=== PATIENT | male | born 1955 | race Caucasian/White ===

== ENCOUNTER 2020-07-03 08:09 | Day surgery (SDC) | payer MEDICARE, OTHER, SELFPAY ==
[2020-07-03] VITALS (12 sets, daily range): BP systolic 89–161; BP diastolic 54–98; PULSE 51–81; RESP 16–20; TEMP 36.6; O2SAT 91–96; BMI 32.3
--- NOTE | 2020-07-03 | IR_ITS ---
APPROVED REPORT [facility] [employer] Teacher: WOODY Nieto RT (R) PROCEDURES Left heart catheterization Left ventriculogram Selective coronary angiogram INDICATION Abnormal stress test, Angina pectoris Informed consent was obtained prior to the procedure. COMPLICATIONS none Estimated Blood Loss: less than 10 mls TECHNIQUE One percent lidocaine used to anesthetize the right anterior aspect of the wrist. The right radial artery was accessed via the Seldinger technique. A 6 [place] sheath was placed in the right radial artery. 2.5 mg of verapamil, 800 mcg of nitroglycerin, 1mg Lidocaine and 5000 U Heparin were given through the arterial sheath. The trap catheter was also used to perform left heart catheterization, left ventriculogram and selective coronary angiogram. At the end of the procedure the sheath was removed good hemostasis was achieved using Traclet band, patient was transferred to the postop holding area in stable condition. ANGIOGRAPHIC RESULTS The left main artery Normal The left anterior descending artery Is a large caliber vessel with a proximal 20% stenosis at the bifurcation of a large first diagonal artery and LAD. Distal to the diagonal artery the LAD has 30% stenosis followed by an additional concentric 20 to 30% mid vessel stenosis. The very large caliber diagonal artery has an ostial 30% stenosis The circumflex artery Is a nondominant yet still large vessel giving rise to a large first obtuse marginal artery which has proximal to mid vessel 30 to 40% tandem stenoses while the second obtuse marginal artery has 10 to 20% mid vessel stenoses The right coronary artery Is a large dominant vessel and has mild proximal luminal irregularities of 10% stenosis The CARPENTER ventriculogram reveals Normal 65% The left ventricular end-diastolic pressure 15 to 20 mmHg IMPRESSION Mild to moderate LAD and circumflex artery disease as described above Normal ejection fraction Mild elevated LVEDP consistent with diastolic dysfunction PLAN 1. Recommend aggressive medical management 2. LDL less than 55 3. Physical therapy 4. Avoidance of tobacco products Electronically signed by : Andres Oneill, 07/03/2020 14:47:04
[2020-07-03 09:00] LABS: Basophils # 0.1 K/mm3 (0-0.2); Chloride 101 mmol/L (98-107); Eosinophils # 0.3 K/mm3 (0.0-0.4); Eosinophils % 4.5 % (0.1-12.0); Hematocrit 42.2 % (42.0-52.0); Hemoglobin 15.5 g/dL (14.1-18.0); Lymphocytes # 1.8 K/mm3 (0.7-4.5); Lymphocytes % 25.3 % (10-50); Mean Corpuscular HGB Conc 36.6 g/dL (31.8-35.4); Mean Corpuscular Hemoglobin 32.5 pg (27.0-31.2); Mean Corpuscular Volume 88.8 fl (80-94); Mean Platelet Volume 9.2 fl (7.4-10.4); Monocytes # 0.6 K/mm3 (0.1-1.0); Monocytes % 8.4 % (1.7-9.3); Neutrophils # 4.4 K/mm3 (1.8-7.8); Neutrophils % 60.9 % (37.0-80.0); Platelet Count 196 K/mm3 (142-424); Potassium 4.2 mmoL/L (3.5-5.1); Red Blood Count 4.76 M/mm3 (4.60-6.20); Red Cell Distribution Width 13.9 % (11.5-17.5); Sodium 140 mmol/L (136-145); White Blood Count 7.2 K/mm3 (4.8-10.8)
[2020-07-03 09:03] LABS: Anion Gap 16.2 mEq/L (5-15); Blood Urea Nitrogen 19 mg/dl (9-20); Carbon Dioxide 27 mmol/L (22.0-30.0); Creatinine Clearance Estimated 102 mL/min (50-200); Estimated Glomerular Filt Rate 67 ml/min (>60); GFR (African American) 81 ML/MIN (>60)
[2020-07-03 09:04] LABS: Calcium 9.1 mg/dl (8.4-10.2); Glucose 109 mg/dl (74-100)
== END 2020-07-03 12:44 | disposition home or self-care (01) ==
PROVIDERS: PCP Family Medicine; Visit Provider Internal Medicine
DX: I25.118 Atherosclerotic heart disease of native coronary artery with other forms of angina pectoris (principal); I11.0 Hypertensive heart disease with heart failure; I50.30 Unspecified diastolic (congestive) heart failure; J44.9 Chronic obstructive pulmonary disease, unspecified; E78.5 Hyperlipidemia, unspecified; Z87.891 Personal history of nicotine dependence; Z79.82 Long term (current) use of aspirin; Z79.899 Other long term (current) drug therapy; Z88.2 Allergy status to sulfonamides
CPT/HCPCS: 80048; 85025; 93458; 99152; C1725; C1769; J1644; Q9967

== ENCOUNTER → 2020-07-13 10:47 | Outpatient (CLI) | payer MEDICARE, OTHER, SELFPAY ==
[2020-07-13 12:52] LABS: Coronavirus 19 IgG Antibody Negative (Negative); Coronavirus 19 IgM Antibody Negative (Negative)
== END ==
PROVIDERS: Visit Provider Internal Medicine Cardiovascular Disease
DX: Z01.818 Encounter for other preprocedural examination (principal); G47.33 Obstructive sleep apnea (adult) (pediatric)
CPT/HCPCS: 36415; 86328

== ENCOUNTER → 2020-07-16 20:20 | Outpatient (CLI) | payer MEDICARE, OTHER, SELFPAY | PROVIDERS: PCP Family Medicine; Visit Provider Internal Medicine Cardiovascular Disease | DX: E78.5 Hyperlipidemia, unspecified (principal); G47.9 Sleep disorder, unspecified; I10 Essential (primary) hypertension; R06.00 Dyspnea, unspecified; R06.83 Snoring; R07.89 Other chest pain; R53.83 Other fatigue; R94.30 Abnormal result of cardiovascular function study, unspecified; Z87.891 Personal history of nicotine dependence; G47.33 Obstructive sleep apnea (adult) (pediatric); G47.31 Primary central sleep apnea; G47.10 Hypersomnia, unspecified | CPT/HCPCS: 95810 ==

== ENCOUNTER → 2020-11-05 13:04 | Outpatient (CLI) | payer MEDICARE, OTHER, SELFPAY ==
--- NOTE | 2020-11-05 13:05 | CA_ITS ---
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 CRT Ht: 123 ft 12 in Wt: 244lbs BSA: 20.83 BP: 124/65 mmHg Indications: COPD, Shortness of Breath, Palpitations, Fatigue, CAD, Hyperlipidemia, Hypertension/HDD 2D Dimensions LVOT 2.24 cm (M/F) 1.5-2.5 M-Mode Dimensions RVDd 2.51 cm (0.9-2.6) LA Diam 3.76 cm (1.9-4.0) LVDd 4.80 cm (3.5-5.7) Ao Diam 4.52 cm (2.0-3.7) LVDs 3.44 cm (3.5-5.7) IVSd 1.54 cm (0.6-1.1) PWd 0.86 cm (0.6-1.1) EF (Teich) 54.60% FS 28.30% EDV (Teich) 107.50 mL ESV (Teich) 48.80 mL LV Diastology E Decel Time 153.00 (160-240 msec) E/A Ratio 0.74 MED E' 6.70 (< 7 cm/sec) E'/MED E' Ratio 7.93 (>14) LAT E' 7.00 (<10 cm/sec) E/LAT E' Ratio 7.59 (>14) Aortic Valve AO Peak GR. 7.20 mmHg Mitral Valve MV A Velocity 72.00 (40-130 cm/s) E/A Ratio 0.74 MV Decel. Time 153.00 (160-240 ms) Pulmonary Valve PV Peak Velocity 85.00 (50-150 cm/s) Tricuspid Valve TR P. Velocity 134.00 cm/s RAP Estimate 10.00 mmHg RVSP 17.20 mmHg Left Ventricle Left atrium is mildly enlarged, left ventricle is normal size, mild concentric left ventricular hypertrophy, visually estimated ejection fraction 55% with no regional wall motion abnormality, grade 1 diastolic dysfunction seen without tissue Doppler evidence of raise left atrial pressure. Right Ventricle Right atrium and right ventricle are normal size and contractility. Aortic Valve Aortic valve is minimally thickened and fibrosed, there is no aortic stenosis or aortic insufficiency. Mitral Valve Mitral valve is grossly normal, there is mild mitral regurgitation. Tricuspid Valve Tricuspid valve grossly normal, there is mild tricuspid regurgitation, tricuspid regurgitation jet velocity is inadequate for calculation of the right ventricular systolic pressure. Pulmonic Valve Pulmonic valve is poorly visualized. Great Vessels Aortic root is normal size. Pericardium No significant pericardial effusion noted. Conclusion 1. Mildly enlarged left atrium, normal left ventricular size, mild concentric left ventricular hypertrophy, visually estimated ejection fraction 55% with no regional wall motion abnormality, grade 1 diastolic dysfunction seen without tissue Doppler evidence of raise left atrial pressure. 2. Mild mitral and tricuspid regurgitation. 3. No significant pericardial effusion noted. Electronically signed by : Ravinder Grijalva, 11/06/2020 05:59:21
== END ==
PROVIDERS: PCP Family Medicine; Visit Provider Nurse Practitioner Family
DX: E78.2 Mixed hyperlipidemia (principal); I10 Essential (primary) hypertension; I25.10 Atherosclerotic heart disease of native coronary artery without angina pectoris; R06.00 Dyspnea, unspecified; Z87.891 Personal history of nicotine dependence
CPT/HCPCS: 93306

== ENCOUNTER → 2020-12-25 12:43 | Outpatient (CLI) | payer MEDICARE, OTHER, SELFPAY ==
--- NOTE | 2020-12-25 12:43 | CT_ITS ---
PROCEDURE: CT LUNG SCREENING CLINICAL INDICATION: Screening Current smoker 40 pack year smoking history Family hx lung cancer No prior normal COMPARISON: No exams were available for comparison TECHNIQUE: The exam was performed on a GE Light Speed [address] scanner using 2.90 mGy CTDI. A low dose helical CT CHEST was performed on a multi-detector scanner. All CT scans at the facility use one or more dose reduction, viz: automated exposure control, ma/kV adjustment per patient size (including targeted exams where dose is matched to indication, i.e. head), or iterative reconstruction technique. The LDCT was performed in a facility that meets the criteria for the screening program. Data regarding this exam was submitted to ACR which is an approved registry. The order for this exam indicates that it came as a result of a lung cancer screening counseling shard decision-making visit that included all the elements required of such a visit including smoking cessation. The radiologist interpreting this exam meets the [facility] criteria for the LDCT lung cancer screening program. The exam is reported using the Lung-RADS classification scale and reported to the ACR registry. NOTE: This study was performed for the specific purposes of lung cancer screening and is not an alternative to diagnostic chest CT. RADIATION DOSE: CTDI vol(CT dose Index-volume) = 2.90mG DLP (Dose Length Product) = 100.55 mGcm FINDINGS: Changes of COPD. Scattered interlobular hazy opacities in keeping with smoking related lung disease. There is evidence of old granulomatous disease. There is a 3 mm noncalcified nodule left upper lobe image 19 series 3. Mild diffuse bronchial thickening. Scattered small mediastinal and axillary lymph nodes are present. OTHER FINDINGS: There is mild dilatation of the ascending aorta measuring up to 4.3 cm. Atherosclerotic calcification is present in the descending thoracic aorta. IMPRESSION: Lung-RADS Category 2 Benign Appearance or Behavior Follow-up: Continue annual screening with LDCT in 12 months Mild dilatation of the ascending aorta at 4.3 cm. Dictated by: Celestine Funes MD 12/31/2020 06:59 Celestine Funes MD in [place] 12/31/2020 06:59
[2020-12-25 15:00] VITALS: PULSE 72; PULSE 79
== END ==
PROVIDERS: PCP Family Medicine; Visit Provider Internal Medicine Pulmonary Disease
DX: F17.210 Nicotine dependence, cigarettes, uncomplicated; R06.02 Shortness of breath
CPT/HCPCS: 71271; 94060; 94618; 94640; 94727; 94729

== ENCOUNTER → 2021-12-30 15:17 | Outpatient (CLI) | payer MEDICARE, OTHER, SELFPAY ==
--- NOTE | 2021-12-30 15:17 | CT_ITS ---
FINAL REPORT CLINICAL HISTORY: lung cancer screening smoker: 1ppd x 40 years COMPARISON: December 25, 2020 FINDINGS: Low-Dose Chest CT CTDI vol (mGy): 2.90 DLP (mGy-cm): 112.81 Axial images were obtained from the lung apex to the mid abdomen by computed tomography. Low-dose protocol was utilized. FINDINGS: CHEST: There is no axillary adenopathy. There is no hilar or mediastinal adenopathy. The heart is proper size. There is no pericardial or pleural effusion. Limited images of the upper abdomen are unremarkable. Lung window images demonstrate mild emphysema. There is mild scarring. There are several calcified granulomas. There is a 3 mm nodule in the left upper lobe that is not as well seen as on the prior but is probably stable. No new masses or nodules are identified. IMPRESSION: Lung RADS category 2. Recommend 12 month follow-up low-dose chest CT. Reviewed, Interpreted and Dictated by Fili Avilez III, MD Transcribed by Saniya Srivastava Authenticated by Fili Avilez III, MD on 12/31/2021 10:18:46 [facility]
== END ==
PROVIDERS: PCP Family Medicine; Visit Provider Internal Medicine Pulmonary Disease
DX: Z87.891 Personal history of nicotine dependence (principal); Z12.2 Encounter for screening for malignant neoplasm of respiratory organs
CPT/HCPCS: 71271